=== PATIENT | female | born 1970 ===

== ENCOUNTER 2019-05-10 03:09 | Emergency (ER) | payer BC ==
--- OUTSIDE RECORDS SUMMARY | 2019-05-10 03:11 | XMS REPORT | Summary of Care ---
:1970 Author Organization [facility] Address [address] [place] [id number] Care Team Providers Name Role Phone Dori Foy MD Primary Care Provider Reason for Visit Reason Comments Rx Concern/Question Encounter Details Date Type Department Care Team Description 10/17/2018 Telephone [facility] Pediatric Dori Foy Rx Concern/ Question and Adult Primary Care- MD Judy Mcgarry [address] [place] [address] [place] [address] [address] [place], [place] [id number] [place] [phone] Allergies No Known Allergiesdocumented as of this encounter (statuses as of 10/18/2018) Medications No known medicationsdocumented as of this encounter (statuses as of 10/18/2018) Active Problems Problem Noted Date Obesity (BMI 30-39.9) 10/03/2018 documented as of this encounter (statuses as of 10/18/2018) Social History Tobacco Use Types Packs/Day Years Used Date Never Smoker Smokeless Tobacco: Never Used Alcohol Use Drinks/Week oz/Week Comments No 0 Standard drinks or equivalent 0.0 Sex Assigned at Date Recorded Not on file Job Start Date Occupation Industry Not on file Not on file Not on file Travel History Travel Start Travel End No recent travel history available. documented as of this encounter Last Filed Vital Signs Not on filedocumented in this encounter Plan of Treatment Date Type Specialty Care Team Description 10/03/2019 Office Visit Internal Medicine Dori Foy MD [address] [place] [address] [facility] [address] [id number] [phone] 10/07/2019 Office Visit Obstetrics & Gynecology Neena Diego PA-C [address] [place] [address] [phone] Health Maintenance Due Date Last Done Comments INFLUENZA VACCINE 11/25/2018 DTaP,Tdap,and Td Vaccines (1 10/02/2019 Postponed from 01/24/1991 - Tdap) (Insurance / Financial) MAMMOGRAM 10/09/2019 10/08/2018 PAP SMEAR 07/05/2020 07/06/2015, 02/08/2011 PNEUMOCOCCAL 0-64 YEARS Aged Out No longer eligible based COMBINED SERIES on patient's age to complete this topic documented as of this encounter Results Not on filedocumented in this encounter Insurance Payer Benefit Plan Subscriber ID Effective Dates Phone Address Type / Group [employer] OF [facility] [place] [id number] 2017-Jevon [phone] [address] PPO/[place] - OUT OF t 7 [id number] [place] [address] documented as of this encounter
--- OUTSIDE RECORDS SUMMARY | 2019-05-10 03:11 | XMS REPORT | Summary of Care ---
:1970 Author Organization [facility] Address [address] [place] [address] Care Team Providers Name Role Phone Dori Foy MD Primary Care Provider Reason for Referral (Routine) Status Reason Specialty Diagnoses / Referred By Referred To Procedures Contact Contact New Request Obstetrics & Diagnoses Abnormal cervical Papanicolaou smear, unspecified abnormal pap finding Johnathon Foy, Gynecology Procedures CONSULT/REFERRAL FRONT DESK PERSON MD Neena Moreira PA-C [address] [place] [address]. [facility] [address] [place] [phone] Phone: Fax: Reason for Visit Reason Comments New Patient Hypertension Auth/Cert Status Reason Specialty Diagnoses / Referred By Referred To Procedures Contact Contact Clinical Medical Diagnoses Routine adult health maintenance Adc Lab Laboratory Procedures CBC ZINC VIT B 6 PLASMA VIT B1 HGBA1C FT3 FT4 TSG LIPID CMP CBC [address] [place] [address] Encounter Details Date Type Department Care Team Description 10/01/2018 Office Visit [facility] Danii Essential hypertension ( Primary Dx); Pediatric and Adult Dori Mcgarry MD Abnormal cervical Papanicolaou smear, unspecified abnormal pap finding; Primary Care- [address] [place] [address] Dr [place] adult health maintenance; [facility] 103 Other insomnia; [address] [place] [address] Dietary counseling; [address] [place] [address] Allergies No Known Allergiesdocumented as of this encounter (statuses as of 11/06/2018) Medications Medication Sig Dispensed Refills Start Date End Date Status lisinopril Take 1 Tab by 30 Tab 0 07/06/2015 10/01/2018 Discontinued (PRINIVIL,ZESTRIL) mouth daily. 10 mg tablet documented as of this encounter (statuses as of 11/06/2018) Active Problems Problem Noted Date Obesity (BMI 30-39.9) 10/03/2018 documented as of this encounter (statuses as of 11/06/2018) Social History Tobacco Use Types Packs/Day Years [...] of this encounter Last Filed Vital Signs Vital Sign Reading Time Taken Comments Blood Pressure 127/87 10/01/2018 9:06 AM CDT Pulse 76 10/01/2018 9:06 AM CDT Temperature 36.6 C (97.8 F) 10/01/2018 9:06 AM CDT Respiratory Rate 18 10/01/2018 9:06 AM CDT Oxygen Saturation 98% 10/01/2018 9:06 AM CDT Inhaled Oxygen Concentration - - Weight 99.4 kg (219 lb 3.2 oz) 10/01/2018 9:06 AM CDT Height 168 cm (5' 6.14") 10/01/2018 9:06 AM CDT Body Mass Index 35.23 10/01/2018 9:06 AM CDT documented in this encounter Patient Instructions Patient InstructionsRebecca Andres - 10/01/2018 9:00 AM CDT Ask pharmacy about tdap vaccine. If blood pressure is running more than 130/90 on a regular basis please call the office. Nonmeat protein options include: Soy proteins such as tofu, tempeh, textured vegetable protein, meatless crumbles Wheat protein such as seitan Nut butters (high in fats so no more than 2 tablespoons a day) or unsalted nuts Nondairy milks, such as soymilk, almond milk, coconut milk Nondairy yogurts, such as soy or almond based yogurts Cooked dried beans, peas, and lentils Vegetables such as broccoli, spinach, kale, sprouts, asparagus, and artichokes Grains such as quinoa (pronounced keen-guzman), ancient grains (barley, farro, amaranth, etc.) Add in more vegetables and fruits. Limit starchy vegetables to 1 serving a day total. Take in no more than 4 servings a fruit a day and at least 5 servings of vegetables a day. Beans belong under protein NOT starch. by the Seed of my plants when: Every Other Monday for 6 weeks Where: [facility] Time: 3:00 p.m. to 4:00 p.m. Plant-Based Cooking for Your good health Did you know that a plant-based diet can help you reduce body weight, reduce the risk for chronic disease plus help you feel better? Join Charo Diaz, Registered Dietitian & Joie Cardoza, Director of Food and for a six weekseries of classes designed to teach you and your family how to shop smarter, cook rubber goods supervisor, and eat wiser for a healthier lifestyle. Nutrition is our [place] ? Monthly Cooking Demonstrations Food Tastings Delicious Recipes ? spring Class Schedule July 11, 2018 July 25, 2018 August 08, 2018 August 22, 2018 September 05, 2018 September 19, 2018 ? [address] [address] For more information call [phone] [facility] documented in this encounter Progress Notes Dori Foy MD - 10/01/2018 9:00 AM CDT Initial Assessment Date of Service: 10/01/2018 CC: establish care for chronic medical conditions HPI: Destiney Pacheco is a 48 year old female with PMH including has a past medical history of Hypertension. who is being seen to establish care. Pt has HTN. Denies checking BP at home. Needs PCP, is pretty healthy. Pt states she has trouble with sleep. Health Maintenance Due for tetanus vaccine. Due for pap smear. Past Medical History: Diagnosis Date Hypertension diet controlled Past Surgical History: Procedure Laterality Date CHOLECYSTECTOMY Family History Problem Relation Age of Onset No Significant Medical Problems Mother No Significant Medical Problems Father Arthritis NoFHx Asthma NoFHx defects NoFHx Breast Cancer NoFHx Colon Cancer NoFHx Ovarian Cancer NoFHx Uterine Cancer NoFHx Depression NoFHx Cancer NoFHx Diabetes NoFHx Genetic NoFHx Heart NoFHx High cholesterol NoFHx Hypertension NoFHx Mental retardation NoFHx Neurological NoFHx Osteoporosis NoFHx Psychiatry NoFHx Social History Socioeconomic History Marital status: Spouse name: Not on file Number of children: Not on file Years of education: Not on file Highest education level: Not on file Occupational History 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 Employer: [employer] Social Needs Financial resource strain: Not on file Food insecurity: Worry: Not on file Inability: Not on file Transportation needs: Medical: Not on file Non-medical: Not on file Tobacco Use Smoking status: Never Smoker Smokeless tobacco: Never Used Substance and Sexual Activity Alcohol use: No Alcohol/week: 0.0 oz Drug use: No Sexual activity: Not Currently Lifestyle Physical activity: Days per week: Not on file Minutes per session: Not on file Stress: Not on file Relationships Social connections: Talks on phone: Not on file Gets together: Not on file Attends protestant service: Not on file Active member of club or organization: Not on file Attends meetings of clubs or organizations: Not on file Relationship status: Not on file Intimate partner violence: Fear of current or ex partner: Not on file Emotionally abused: Not on file Physically abused: Not on file Forced sexual activity: Not on file Other Topics Concern Not on file Social History Narrative No domestic abuse or violence. Lives with 3 children. 10/01/2018 No Known Allergies No current outpatient medications on file. No current facility-administered medications for this visit. ROS: Review of Systems Psychiatric/Behavioral: Positive for sleep disturbance. PE: Blood pressure 127/87, pulse 76, temperature 36.6 C (97.8 F), temperature source Oral, resp. rate 18, height 5' 6.14" (1.68 m), weight 219 lb 3.2 oz ( 99.4 kg), last menstrual period 09/23/2018, SpO2 98 %. Physical Exam Constitutional: She is oriented to person, place, and time. She appears well- developed and well-nourished. No distress. HENT: Head: Normocephalic and atraumatic. Right Ear: External ear normal. Left Ear: External ear normal. Nose: Nose normal. No tracheal deviation Eyes: Lids are normal. Right eye exhibits no discharge. Left eye exhibits no discharge. No scleral icterus. Left and right eyelids normal. Cardiovascular: Normal rate, regular rhythm and normal heart sounds. Exam reveals no gallop and no friction rub. No murmur heard. Pulmonary/Chest: Effort normal and breath sounds normal. No respiratory distress. She has no wheezes. She has no rales. Abdominal: Normal appearance. GI system: Soft. No distension, bowel sounds are normal. There is no tenderness. Neurological: She is alert and oriented to person, place, and time. No tremors. Normal gait. Skin: Skin is warm and dry. No rash noted. She is not diaphoretic. Psychiatric: She has a normal mood and affect. Her speech is normal and behavior is normal. Pleasant. Vitals reviewed. Results: No new labs Assessment & PLAN: Destiney Pacheco is a 48 year old female with PMH including has a past medical history of Hypertension. who is being seen to establish care. Essential hypertension (primary encounter diagnosis) Comment: Denies checking BP at home. Plan: Pt will monitor BP. If BP is more than 130/90 on a regular basis pt will call. Abnormal cervical Papanicolaou smear, unspecified abnormal pap finding Comment: Due for pap smear. Plan: CONSULT/REFERRAL FRONT DESK PERSON Routine adult health maintenance Comment: Due for annual labs. Plan: CBC WITH DIFF, COMP. METABOLIC PANEL (99271), LIPID PANEL (86258)(TOTAL CHOLESTEROL, TRIGLYCERIDES, HDL), THYROID STIMULATING HORMONE, FREE T4, FREE T3, GLYCOSYLATED HEMOGLOBIN (A1C), CBC WITH DIFFERENTIAL Other insomnia Comment: Pt c/o sleep trouble. Will check vitamin levels. Plan: VITAMIN B1 (THIAMINE), WHOLE BLOOD, VITAMIN B6, PLASMA, ZINC, SERUM Dietary counseling Comment: Discussed healthy diet changes. Plan: Gave references and handouts. Exercise counseling Comment: Discussed increase in exercise. Plan: Pt will work on exercise. Plan of care, desired health behaviors, goals,& medication discussed with patient and educational resources and self management tools provided as appropriate. Patient/family/guardian voices understanding. Patient verbalized understanding & agrees to plan of care. Barriers to care: none Ability to manage care: good Return in about 1 year (around 10/02/2019) for Chronic medical conditions, annual exam. Scribe's Attestation Rebecca Mendieta , am scribing for, and in the presence of, Dori Foy MD who performed the services described here-in. Rebecca Andres, October 01, 2018, 9:53 AM Physician's Attestation Dori Mendieta MD, personally performed the services described in this documentation , asscribed by, Rebecca Andres in my presence and it is both accurate and complete. Dori Foy MD October 04, 2018, 8:04 PM documented in this encounter Plan of Treatment Date Type Specialty Care Team Description 10/03/2019 Office Visit Internal Medicine Dori Foy MD [address] [place] [address] [phone] 10/07/2019 Office Visit Obstetrics & Gynecology Neena Diego PA-C [address] [place] [phone] Health Maintenance Due Date Last Done Comments INFLUENZA VACCINE 11/25/2018 DTaP,Tdap,and Td Vaccines (1 10/02/2019 Postponed from 01/24/1991 - Tdap) (Insurance / Financial) MAMMOGRAM 10/09/2019 10/08/2018 PAP SMEAR 07/05/2020 07/06/2015, 02/08/2011 PNEUMOCOCCAL 0-64 YEARS Aged Out No longer eligible based COMBINED SERIES on patient's age to complete this topic documented as of this encounter Procedures Procedure Name Priority Date/Time Associated Diagnosis Comments VITAMIN B1 Routine 10/01/2018 11:01 Other insomnia Results for this (THIAMINE), WHOLE AM CDT procedure are in BLOOD the results section. CBC WITH DIFFERENTIAL Routine 10/01/2018 11:01 Routine adult health Results for this AM CDT maintenance procedure are in the results section. FREE T3 Routine 10/01/2018 11:01 Routine adult health Results for this AM CDT maintenance procedure are in the results section. GLYCOSYLATED Routine 10/01/2018 11:01 Routine adult health Results for this HEMOGLOBIN (A1C) AM CDT maintenance procedure are in the results section. CBC WITH DIFF Routine 10/01/2018 11:01 Routine adult health Results for this AM CDT maintenance procedure are in the results section. LIPID PANEL Routine 10/01/2018 11:01 Routine adult health Results for this (05407)(TOTAL AM CDT maintenance procedure are in CHOLESTEROL, the results TRIGLYCERIDES, HDL) section. COMP. METABOLIC PANEL Routine 10/01/2018 11:01 Routine adult health Results for this (79726) AM CDT maintenance procedure are in the results section. THYROID STIMULATING Routine 10/01/2018 11:01 Routine adult health Results for this HORMONE AM CDT maintenance procedure are in the results section. FREE T4 Routine 10/01/2018 11:01 Routine adult health Results for this AM CDT maintenance procedure are in the results section. VITAMIN B6, PLASMA Routine 10/01/2018 11:01 Other insomnia Results for this AM CDT procedure are in the results section. ZINC, SERUM Routine 10/01/2018 11:01 Other insomnia Results for this AM CDT procedure are in the results section. documented in this encounter Results CBC WITH DIFFERENTIAL (10/01/2018 11:01 AM CDT) WBC 4.87 4.30 - 11.10 [facility] 10*3/L [facility] RBC 4.32 3.93 - 5.25 [facility] 10*6/L [facility] HGB 9.1 (L) 11.6 - 15.0 [facility] g/dL [facility] HCT 32.1 (L) 35.7 - 45.2 % [facility] MCV 74.3 (L) 80.6 - 95.5 [facility] MCH 21.1 (L) 25.9 - 32.8 [facility] MCHC 28.3 (L) 31.6 - 35.1 [facility] g/dL HOSPITAL [facility] RDW-SD 43.8 39.0 - 49.9 [facility] fL [facility] RDW-CV 16.3 (H) 12.0 - 15.5 % [facility] PLT 169 166 - 358 [facility] 10*3/L [facility] MPV Comment: Not 9.5 - 12.9 fL [facility] Measured [facility] IPF % 14.2 (H)Comment: 1.3 - 7.7 % [facility] Platelet count HOSPITAL measured by LABORATORY fluorescence method. NRBC/100 WBC 0.0 0.0 - 10.0 [facility] /100 WBCs [facility] NRBC x10^3 <0.01 10*3/L [facility] GRAN MAT (NEUT) % 49.6 % [facility] IMM GRAN % 0.60 % [facility] LYMPH % 36.1 % [facility] MONO % 8.6 % [facility] EOS % 4.3 % [facility] BASO % 0.8 % [facility] GRAN MAT 2.41 1.88 - 7.09 [facility] x10^3(ANC) 10*3/uL [facility] IMM GRAN x10^3 0.03 0.00 - 0.06 [facility] 10*3/uL [facility] LYMPH x10^3 1.76 1.32 - 3.29 [facility] 10*3/uL [facility] MONO x10^3 0.42 0.33 - 0.92 [facility] 10*3/uL [facility] EOS x10^3 0.21 0.03 - 0.39 [facility] 10*3/uL [facility] BASO x10^3 0.04 0.01 - 0.07 [facility] 10*3/uL [facility] Specimen Blood Performing Organization Address City/State/Zipcode Phone Number [facility] CLIA: [id number], [address] [place] [address] ZINC, SERUM (10/01/2018 11:01 AM CDT) ZINC 75.6 60.0 - 120.0 [facility] Comment: ug/dL INTERPRETIVE INFORMATION: Zinc, Serum or Plasma Elevated results may be due to skin or collection-related contamination, including the use of a noncertified metal-free collection/transport tube. If contamination concerns exist due to elevated levels of serum/plasma zinc, confirmation with a second specimen collected in a certified metal-free tube is recommended. Circulating zinc concentrations are dependent on albumin status and are depressed with malnutrition.Zinc may also be lowered with infection, inflammation, stress, oral contraceptives, and .Zinc may be elevated with zinc supplementation or fasting.Elevated zinc concentrations may interfere with copper absorption. Test developed and characteristics determined by [employer]. See Compliance Statement B: [employer]/CS Performed by [employer], [address] [place] [address] [phone] [email or web address], Eduardo Jorge MD, Lab. Director Specimen Blood Performing Organization Address [facility] Phone Number [facility] [address] [place] [address] VITAMIN B6, PLASMA (10/01/2018 11:01 AM CDT) Pathologist [facility] VIT B6 61.0 20.0 - 125.0 [facility] Comment: nmol/L INTERPRETIVE INFORMATION: Vitamin B6 (Pyridoxal 5-Phosphate) Pyridoxal 5'-phosphate measured in a specimen collected following an 8-hour or overnight fast accurately indicates vitamin B6 nutritional status. Non-fasting specimen concentration reflects recent vitamin intake. Test developed and characteristics determined by [employer]. See Compliance Statement B: [employer]CS Performed by [employer], [address] [place] [address] [id number] [email or web address], Eduardo Jorge MD, Lab. Director Specimen Blood Performing Organization Address [facility] Phone Number [facility] [address] [place] [address] VITAMIN B1 (THIAMINE), WHOLE BLOOD (10/01/2018 11:01 AM CDT) Pathologist [facility] Vitamin B1, Whole 110 70 - 180 [facility] Blood Comment: nmol/L INTERPRETIVE INFORMATION: Vitamin B1, Whole Blood This assay measures the concentration of thiamine diphosphate (TDP), the primary active form of vitamin B1. Approximately 90 percent of vitamin B1 present in whole blood is TDP. Thiamine and thiamine monophosphate, which comprise the remaining 10 percent, are not measured. Test developed and characteristics determined by [employer]. See Compliance Statement B: [employer]/CS Performed by [employer], [address] [facility] [place] [address] www.[email or web address], Eduardo Jorge MD, Lab. Director Specimen Blood Performing Organization Address [facility] Phone Number [facility] [address] [place] [address] GLYCOSYLATED HEMOGLOBIN (A1C) (10/01/2018 11:01 AM CDT) HGB A1C 5.6 4.0 - 6.0 % NGSP [facility] Specimen Blood Narrative Performed At %A1C (NGSP) Interpretation (ADA) [facility] 4.8-5.6 Normal or (Non-Diabetic Range) 5.7-6.4 Increased Risk (Pre-Diabetic) >6.5Diabetes Indicated Performing Organization Address [facility] Phone Number [facility] CLIA: [id number], [address] [place] [address] FREE T3 (10/01/2018 11:01 AM CDT) FREE T3 3.43 2.77 - 5.27 pg/mL [facility] Specimen Blood Performing Organization Address [facility] Phone Number [facility] CLIA: [id number], [address] [place], [place] [address] [address] FREE T4 (10/01/2018 11:01 AM CDT) FREE T4 0.84 0.78 - 2.20 ng/dL [facility] Specimen Blood Performing Organization Address [facility] Phone Number [facility] CLIA: [id number], [address] [place], [place] [address] [address] THYROID STIMULATING HORMONE (10/01/2018 11:01 AM CDT) TSH 1.34 0.45 - 4.70 mIU/L [facility] Specimen Blood Performing Organization Address [facility] Phone Number [facility] CLIA: [id number], [address] [place] [address] LIPID PANEL (41833)(TOTAL CHOLESTEROL, TRIGLYCERIDES, HDL) (10/01/2018 11:01 AM CDT) CHOL 184 120 - 200 mg/dL [facility] HDL 53 >50 mg/dL [facility] HDLC RATIO 3.5 <=4.5 [facility] TRIG 197 (H) 30 - 170 mg/dL [facility] LDL CHOL 92 <=160 mg/dL [facility] VLDL 39 5 - 60 mg/dL [facility] Specimen Blood Performing Organization Address City/State/Zipcode Phone Number [facility] CLIA: [id number], [address] [place] [address] COMP. METABOLIC PANEL (34290) (10/01/2018 11:01 AM CDT) NA 143 135 - 145 [facility] mmol/L [facility] K 4.1 3.5 - 5.0 [facility] mmol/L [facility] CL 109 (H) 98 - 108 mmol/L [facility] CO2 TOTAL 24 23 - 31 mmol/L [facility] AGAP 10 2 - 16 [facility] BUN 11 7 - 23 mg/dL [facility] GLUCOSE 97 70 - 110 mg/dL [facility] CREATININE 0.51 0.50 - 1.04 [facility] mg/dL [facility] TOTAL BILI 0.2 0.1 - 1.1 mg/dL [facility] CALCIUM 9.0 8.6 - 10.6 [facility] mg/dL [facility] T PROTEIN 7.2 6.3 - 8.2 g/dL [facility] ALBUMIN 4.2 3.5 - 5.0 g/dL [facility] ALK PHOS 51 34 - 122 U/L [facility] ALT(SGPT) 19 9 - 51 U/L [facility] AST(SGOT) 18 13 - 40 U/L [facility] eGFR Calculation 129.8 mL/min/1.73m2 [facility] ([facility] [place]) eGFR Calculation 157.4 mL/min/1.73m2 [facility] () [facility] Specimen Blood Narrative Performed At Association of Glomerular Filtration Rate (GFR) [facility] and Staging of Kidney Disease* + + +- + | GFR (mL/min/1.73 m2)| With Kidney Damage|Without Kidney Damage + + +- + |>90| Stage one| Normal + + +- + |60-89|S tage two| Decreased GFR + + +- + |30-59|S tage three| Stage three + + +- + |15-29|S tage four | Stage four + + +- + |<15 (or dialysis)|Stage five | Stage five + + +- + *Each stage assumes the associated GFR level has been in effect for at least three months.Stages 1 to 5, with or without kidney disease, indicate chronic kidney disease. Notes: Determination of stages one and two (with eGFR >59mL/min/1.73 m2) requires estimation of kidney damage for at least three months as defined by structural or functional abnormalities of the kidney, manifested by either: Pathological abnormalities or Markers of kidney damage (including abnormalities in the composition of the blood or urine or abnormalities in imaging tests). Performing Organization Address City/State/Zipcode Phone Number [facility] CLIA: [id number], [address] [place] [address] documented in this encounter Visit Diagnoses Diagnosis Essential hypertension - Primary Unspecified essential hypertension Abnormal cervical Papanicolaou smear, unspecified abnormal pap finding Routine adult health maintenance Routine general medical examination at a health care facility Other insomnia Dietary counseling Dietary surveillance and counseling Exercise counseling documented in this encounter Insurance Payer Benefit Plan Subscriber ID Effective Dates Phone Address Type / Group [facility] [id number] 2017-Jevon [phone] [address] PPO/POS [place] - OUT OF t 7 [id number] [place] [address] documented as of this encounter
--- OUTSIDE RECORDS SUMMARY | 2019-05-10 03:12 | XMS REPORT | Summary of Care ---
:1970 Author Organization [facility] - [facility] Address [address] [place] [id number] Care Team Providers Name Role Phone Dori Foy MD Primary Care Provider Reason for Visit Reason Comments Error Encounter Details Date Type Department Care Team Description 04/08/2019 Office Visit [facility] Women's Neena Diego, [facility] PA-C ENCOUNTER--DISREGARD [address] [place] [address], [facility] [address] [place] [id number] [place], [place] [phone] Allergies No Known Allergiesdocumented as of this encounter (statuses as of 04/09/2019) Medications Medication Sig Dispensed Refills Start Date End Date Status fluticasone propionate Use 1 [place] in 16 g 0 02/20/2019 Active 50 mcg/actuation nasal each nostril sprayIndications: Acute daily. non-recurrent maxillary sinusitis zinc sulfate (ZINC-15 Take by mouth 0 Active ORAL) daily. norgestimate-ethinyl Take 1 tablet by 1 Package 2 02/26/2019 Active estradiol 0.25-35 mouth daily. mg-mcg per tabletIndications: Menorrhagia with regular cycle, Encounter for initial prescription of contraceptive pills SERTraline 25 mg Take 1 tablet by 30 tablet 2 03/29/2019 Active tabletIndications: mouth daily. Anxiety and depression lisinopril 10 mg Take 1 tablet by 90 tablet 3 03/29/2019 Active tabletIndications: mouth daily. Essential hypertension documented as of this encounter (statuses as of 04/09/2019) Active Problems Problem Noted Date Essential hypertension 03/29/2019 Nose congestion 03/29/2019 Stress and adjustment reaction 03/29/2019 Anxiety and depression 03/29/2019 Left otitis media, unspecified otitis media type 02/23/2019 Acute non-recurrent maxillary sinusitis 02/23/2019 Productive cough 02/23/2019 Pharyngitis, unspecified etiology 02/23/2019 Sore throat 02/23/2019 Nonintractable headache, unspecified chronicity pattern, unspecified 2018 headache type Obesity (BMI 30-39.9) 10/03/2018 documented as of this encounter (statuses as of 04/09/2019) Immunizations Name Administration Dates Next Due Influenza Virus Vaccine Quad .5 mL IM 6+ MO 12/31/2018 documented as of this encounter Social History Tobacco Use Types Packs/Day Years [...] Signs Not on filedocumented in this encounter Progress Notes Neena Diego PA-C - 04/08/2019 4:15 PM CSTPatient left before being seen documented in this encounter Plan of Treatment Date Type Specialty Care Team Description 04/09/2019 Office Visit Family Medicine Myron Haddad MD [address] [place] [address] [address] [place] [address] [phone] 04/16/2019 Office Visit Obstetrics & Gynecology Neena Diego PA-C [address] [place] [address] Drive [facility] [address] [place] [phone] 08/05/2019 Office Visit Internal Medicine Dori Foy MD [address] [place] [address] Dr [address] [place] [address] 10/03/2019 Office Visit Internal Medicine Dori Foy MD [address] [place] [address] [address] [place] [address] [phone] 10/07/2019 Office Visit Obstetrics & Gynecology Neena Diego PA-C [address] [facility] [address] [place] [address] Health Maintenance Due Date Last Done Comments DTaP,Tdap,and Td Vaccines (1 10/02/2019 Postponed from 01/24/1983 - Tdap) (Insurance / Financial) Breast Cancer Screening 10/09/2019 10/08/2018 (MAMMOGRAM) PAP SMEAR 07/05/2020 07/06/2015, 02/08/2011 INFLUENZA VACCINE Completed 12/31/2018 PNEUMOCOCCAL 0-64 YEARS Aged Out No longer eligible based COMBINED SERIES on patient's age to complete this topic documented as of this encounter Results Not on filedocumented in this encounter Visit Diagnoses Diagnosis ERRONEOUS ENCOUNTER--DISREGARD - Primary documented in this encounter Insurance Payer Benefit Plan Subscriber ID Effective Dates Phone Address Type / Group [facility] [id number] 2017-Jevon [phone] [address] PPO/POS [place] - OUT OF t 7 [id number] [place] [address] documented as of this encounter
--- OUTSIDE RECORDS SUMMARY | 2019-05-10 03:12 | XMS REPORT | Summary of Care ---
:1970 Author Organization [facility] - [facility] Address [address] [place] [id number] Care Team Providers Name Role Phone Dori Foy MD Primary Care Provider Reason for Visit Reason Comments Error Encounter Details Date Type Department Care Team Description 04/08/2019 Office Visit [facility] Women's Neena Diego, [facility] PA-C ENCOUNTER--DISREGARD [address] [place] [address], [facility] [address] [place] [phone] [place], [place] [phone] Allergies No Known Allergiesdocumented as of this encounter (statuses as of 04/09/2019) Medications Medication Sig Dispensed Refills Start Date End Date Status fluticasone propionate Use 1 [place] in 16 g 0 02/20/2019 Active 50 [...] Office Visit Family Medicine Myron Haddad MD [address] [place] [address] [address] [place] [address] [phone] 04/16/2019 Office Visit Obstetrics & Gynecology Neena Diego PA-C [address] [place] [address] Drive [facility] [address] [place] [phone] 08/05/2019 Office Visit Internal Medicine Dori Foy MD [address] [place] [address] Dr [address] [place] [address] 10/03/2019 Office Visit Internal Medicine Dori Foy MD [address] [place] [address] [address] [place] [address] [phone] 10/07/2019 Office Visit Obstetrics & Gynecology Neena Diego PA-C [address] [facility] [address] [place] [address] Health Maintenance Due Date Last Done Comments [...] Effective Dates Phone Address Type / Group [facility] [id number] 2017-Jevon [phone] [address] PPO/POS [place] - OUT OF t 7 [id number] [place] [address] documented as of this encounter
--- OUTSIDE RECORDS SUMMARY | 2019-05-10 03:12 | XMS REPORT | Summary of Care ---
:1970 Author Organization [facility] Address [address] [place] [id number] Care Team Providers Name Role Phone Dori Foy MD Primary Care Provider Reason for Visit Reason Comments Follow-up Hypertension Depression Anxiety Anemia OBESITY Encounter Details Date Type Department Care Team Description 04/09/2019 Office Visit [facility] Pediatric Myron Haddad, Anxiety and depression (Primary Dx); and Adult Primary MD Essential hypertension; Care- [address] Anemia, unspecified type; [address] [place] [address] Dr[address] Obesity (BMI 30.0-34.9) [address] [place] [address] [place] [phone] [id number] [phone] Allergies No Known Allergiesdocumented as of this encounter (statuses as of 04/09/2019) Medications Medication Sig Dispensed Refills Start Date End Date Status fluticasone propionate Use 1 [place] in 16 g 0 02/20/2019 Active 50 [...] of 04/09/2019) Active Problems Problem Noted Date Anemia, unspecified type 04/09/2019 Obesity (BMI 30.0-34.9) 04/09/2019 Essential hypertension 03/29/2019 Nose congestion 03/29/2019 Stress [...] Sign Reading Time Taken Comments Blood Pressure 146/97 04/09/2019 9:08 AM YARN CLEANER Pulse 83 04/09/2019 9:07 AM YARN CLEANER Temperature 36.5 C (97.7 F) 04/09/2019 9:07 AM YARN CLEANER Respiratory Rate 18 04/09/2019 9:07 AM YARN CLEANER Oxygen Saturation 99% 04/09/2019 9:07 AM YARN CLEANER Inhaled Oxygen Concentration - - Weight 90.7 kg (199 lb 14.4 oz) 04/09/2019 9:07 AM YARN CLEANER Height 165.1 cm (5' 5") 04/09/2019 9:07 AM YARN CLEANER Body Mass Index 33.27 04/09/2019 9:07 AM YARN CLEANER documented in this encounter Patient Instructions Patient InstructionsEdMyron tucker MD - 04/09/2019 9:20 AM CST Eating Heart-Healthy Food: Using the DASH Plan Eating for your heart doesnt have to be hard or boring. You just need to know how to make healthier choices. The DASH eating plan has been developed to help you do just that. DASH stands for DietaryApproaches to Stop Hypertension. It is a plan that has been proven to be healthier for your heart and to lower your risk for high blood pressure. It can also help lower your risk for cancer, heart disease, osteoporosis, and diabetes. Choosing from each food group Choose foods from each of the food groups below each day. Try to get the recommended number of servings for each food group. The serving numbers are based on a diet of 2,000 calories a day.Talk to your doctor if youre unsure about your calorie needs. Along with getting the correct servings, the DASH plan also recommends a sodium intake less than 2,300 mg per day. Grains Servings: 6 to 8 a day A serving is: 1 slice bread 1 ounce dry cereal Half a cup cooked rice, pasta or cereal Best choices: Whole grains and any grains high in fiber. Vegetables Servings: 4 to 5 a day A serving is: 1 cup raw leafy vegetable Half a cup cut-up raw or cooked vegetable Half a cup vegetable juice Best choices: Fresh or frozen vegetables prepared without added salt or fat. Fruits Servings: 4 to 5 a day A serving is: 1 medium fruit One-quarter cup dried fruit Half a cup fresh, frozen, or canned fruit Half a cup of 100% fruit juices Best choices: A variety of fresh fruits of different colors. Whole fruits are a better choice than fruit juices. Low-fat or fat-free dairy Servings: 2 to 3 a day A serving is: 1 cup milk 1 cup yogurt One and a half ounces cheese Best choices: Skim or 1% milk, low-fat or fat-free yogurt or buttermilk, and low -fat cheeses. Lean meats, poultry, fish Servings:6 or fewer a day A serving is: 1ounce cooked meats, poultry, or fish 1 egg Best choices: Leanpoultry and fish. Trim away visible fat. Broil, grill, roast , or boil instead offrying. Remove skin from poultry before eating. Limit how much red meat you eat. Nuts, seeds, beans Servings: 4 to 5 a week A serving is: One-third cup nuts (one and a half ounces) 2 tablespoons nut butter or seeds Half a cup cooked dry beans or legumes Best choices: Dry roasted nuts with no salt added, lentils, kidney beans, garbanzo beans, and whole gaffney beans. Fats and oils Servings: 2 to 3 a day A serving is: 1 teaspoon vegetable oil 1 teaspoon soft margarine 1 tablespoonmayonnaise 2 tablespoons salad dressing Best choices: Nut and vegetable oils(nontropical vegetable oils), such as olive and canola oil. Sweets Servings: 5 a week or fewer A serving is: 1 tablespoon sugar, maple syrup, or honey 1 tablespoon jam or jelly 1 half-ounce jelly beans (about 15) 1 cup lemonade Best choices: Dried fruit can be a satisfying sweet. Choose low-fat sweets. And watch your serving sizes! For more on the DASH eating plan, visit: www.nhlbi.nih.gov/health/health-topics/topics/dash Ilya last reviewed this educational content on 08/26/201519990381-5625 [employer]. [address] [place] [address]. All rights reserved. This information is not intended as a substitute for professional medical care. Always follow your healthcare professional's instructions. AnxietyReaction Anxiety is the feeling we all get when we think something bad might happen. It is a normal response to stress and usually causes only a mild reaction. When anxiety becomes more severe, it caninterfere with daily life. In some cases, you may not even be aware of what it is youre anxious about. There may also be a genetic link or it may be a learned behavior in the home. Both psychological and physical triggers cause stress reaction. It's often a response to fear or emotional stress, real or imagined. This stress may come from home, family, work, or social relationships. During an anxiety reaction, you may feel: Helpless Nervous Depressed Irritable Your body may show signs of anxiety in many ways. You may experience: Dry mouth Shakiness Dizziness Weakness Trouble breathing Breathing fast (hyperventilating) Chest pressure Sweating Headache Nausea Diarrhea Tiredness Inability to sleep Sexual problems Home care Try to locate the sources of stress in your life. They may not be obvious. These may include: ? Daily hassles of life (such as traffic jams, missed appointments, or car troubles) ? Major life changes, both good (new baby or job promotion) and bad (loss of job or loss of loved one) ? Overload: feeling that you have too many responsibilities and can't take care of all of them at once ? Feeling helpless or feeling that your problems are beyond what youre able to solve Notice how your body reacts to stress. Learn to listen to your body signals. This will help you take action before the stress becomes severe. When you can, do something about the source of your stress. (Avoid hassles, limit the amount of change that happens in your life at one time and take a break when you feel overloaded). Unfortunately, many stressful situations can't be avoided. It is necessary to learn how to bettermanage stress. There are many proven methods that will reduce your anxiety. These include simple things like exercise, good nutrition, and adequate rest. Also, there are certain techniques that are helpful: ? Relaxation ? Breathing exercises ? Visualization ? Biofeedback ? Meditation For more information about this, consult your healthcare provider or go to a local bookstore and review the many books and tapes available on this subject. Follow-up care If you feel that your anxiety is not responding to self-help measures, contact your healthcare provider or make an appointment with a counselor. You may need short-term psychological counseling and temporary medicine to help you manage stress. Call 911 Call 911 if any of these happen: Trouble breathing Confusion Drowsiness or trouble wakening Fainting or loss of consciousness Rapid heart rate Seizure New chest pain that becomes more severe, lasts longer, or spreads into your shoulder, arm, neck, jaw, or back When to seek medical advice Call your healthcare provider right away if any of these happen: Your symptoms get worse Severe headache not relieved by rest and mild pain reliever [employer] last reviewed this educational content on 12/25/201619995566-1665 [employer]. [address] [facility], [place] [address]. All rights reserved. This information is not intended as a substitute for professional medical care. Always follow your healthcare professional's instructions. What Can Cause Depression? Depression is a real, treatable illness. Certain factors can trigger it. Below are some common knowncauses. Any of these factors, or a combination of them, can make depression more likely. Sometimes depression occurs for no one clear reason. But no matter what the cause, depression can be treated. Loss or stress Depression can occur in children and adults, but it often starts in adulthood. Normal grief over a , breakup, or other loss may become depression. Life stresses such as physical abuse, job loss, or sudden change in finances can also trigger depression. In some cases, years go by before the depression sets in. Family history The tendency to develop depression seems to run in families. If one or more of your close relatives (parents, grandparents, or siblings) have had an episode of depression, you may be more likely to develop the illness, too. Drugs or alcohol Drugs and alcohol can upset the chemical balance in the brain. This can lead to an episode of depression. Some depressed people turn to drugs or alcohol to numb the pain. But in the long run, doing so just makes depression worse. Medicines Depression can be a side effect of some medicines for high blood pressure, cancer, pain, and other health problems. So tell your doctor about how you are feeling and discuss the role your medicines mayplay in your symptoms. But never stop taking one without your doctors OK. Physical illness Being sick can make anyone feel frustrated and sad. But some health problems may cause actual changes in your brain that lead to depression. Other health problems such as an underactive thyroid may be mistaken for depression. Hormones Hormones carry messages in the bloodstream. They may affect brain chemicals, leading to depression. Women may get depressed when their hormone levels change quickly, such as just before their period, after giving , or during menopause. [employer] last reviewed this educational content on 11/25/201819996711-1935 [employer]. [address] [place] [address]. All rights reserved. This information is not intended as a substitute for professional medical care. Always follow your healthcare professional's instructions. CLEANER documented in this encounter Progress Notes Myron Haddad MD - 04/09/2019 9:20 AM CST Cc: Chief Complaint Patient presents with Follow-up Hypertension Depression Anxiety Anemia OBESITY HPI Destiney Pacheco is a 49 year old female with PMH of HTN, depression and anxiety presenting to the clinic for follow-up. Patient reports she is compliant with lisinopril 10 mg PO QD. Measures BP at home, and is usually about 127/90. Patient says that she just heard stressful news from sister, which is why her BP is high upon this office visit (149/91, 146/97 on recheck). Denies chest pain, dizziness, edema. She does notfollow a diet, but takes regular [employer] classes and likes to go on walks. On Monday03/30/19, patient went to ER and had an ultrasound because of abdominal pain. Result were normal, and she was told pain was secondary to menstruation. Currently denies abdominal pain. Today patient reports anxiety and mood is "better". She reports feeling depressed whenever she thinks about her parents who a few years ago. Sleep is improved. She has never taken medication for her mood or seen a psychiatrist, and has no interest in doing so. She was prescribed sertraline, but not current taking it. The only medication besides lisinopril she takes currently is zinc sulfate QD. Patient reports anxiety and stress is improved since last visit. 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 Her economic situation has improved and makes her less anxious now. Patient denies suicidal or homicidal ideations. She lives at home with her 3 teenage children. Her lives in [place], and they are not in good terms. Lab review completed in clinic today. Discussed low Hgb (9.9) from last CBC on with patient.She denies any fatigue, dizziness, lightheadedness, N/V. Discussed dietary modifications including fruits, vegetables, beef in moderation. Patient stopped taking iron supplement a few months ago after her iron panel on 01/14/19 showed elevated iron levels at 173. Allergies Destiney has No Known Allergies. Medications Outpatient Medications Prior to Visit Medication Sig Dispense Refill lisinopril 10 mg tablet Take 1 tablet by mouth daily. 90 tablet 3 zinc sulfate (ZINC-15 ORAL) Take by mouth daily. SERTraline 25 mg tablet Take 1 tablet by mouth daily. 30 tablet 2 norgestimate-ethinyl estradiol 0.25-35 mg-mcg per tablet Take 1 tablet by mouth daily. 1 Package2 fluticasone propionate 50 mcg/actuation nasal spray Use 1 [place] in each nostril daily. 16 g 0 No facility-administered medications prior to visit. Histories Past Medical History: Diagnosis Date Acute non-recurrent maxillary sinusitis 02/23/2019 Anemia, unspecified type 04/09/2019 Anxiety and depression 03/29/2019 Essential hypertension 03/29/2019 Hypertension Left otitis media, unspecified otitis media type 02/23/2019 Nose congestion 03/29/2019 Obesity (BMI 30-39.9) 10/03/2018 Productive cough 02/23/2019 Stress and adjustment reaction 03/29/2019 Past Surgical History: Procedure Laterality Date CHOLECYSTECTOMY Social History Socioeconomic History Marital status: Spouse name: Not on file Number of children: Not on file Years of education: Not on file Highest education level: Not on file Occupational History 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 Employer: [employer] Social Needs Financial resource strain: Not on file Food insecurity: Worry: Not on file Inability: Not on file Transportation needs: Medical: Not on file Non-medical: Not on file Tobacco Use Smoking status: Never Smoker Smokeless tobacco: Never Used Substance and Sexual Activity Alcohol use: No Alcohol/week: 0.0 standard drinks Drug use: No Sexual activity: Not Currently Lifestyle Physical activity: Days per week: Not on file Minutes per session: Not on file Stress: Not on file Relationships Social connections: Talks on phone: Not on file Gets together: Not on file Attends holiness service: Not on file Active member of [...] or violence. Lives with 3 children. 10/01/2018 Family History Problem Relation Age of Onset No Significant Medical Problems Mother No Significant Medical Problems Father Arthritis NoFHx Asthma NoFHx defects NoFHx Breast Cancer NoFHx Colon Cancer NoFHx Ovarian Cancer NoFHx Uterine Cancer NoFHx Depression NoFHx Cancer NoFHx Diabetes NoFHx Genetic NoFHx Heart NoFHx High cholesterol NoFHx Hypertension NoFHx Mental retardation NoFHx Neurological NoFHx Osteoporosis NoFHx Psychiatry NoFHx Review of Systems Constitutional: Negative for appetite change, chills, fatigue, fever, unexpected weight change, weight gain and weight loss. HENT: Negative for congestion and sore throat. Eyes: Negative for visual disturbance. Respiratory: Negative for cough, chest tightness and shortness of breath. Cardiovascular: Negative for chest pain, palpitations and leg swelling. Gastrointestinal: Positive for abdominal distention. Negative for abdominal pain , constipation, diarrhea, nausea and vomiting. Genitourinary: Negative for dysuria and pelvic pain. Musculoskeletal: Negative for arthralgias and myalgias. Skin: Negative for color change and rash. Neurological: Negative for dizziness, weakness, light-headedness and headaches. Psychiatric/Behavioral: Negative for behavioral problems, confusion, sleep disturbance and suicidal ideas. Hematological: Negative for cold intolerance and heat intolerance. Endocrine: Negative for cold intolerance, heat intolerance, weight gain and weight loss. Vital Signs BP (!) 146/97 (BP Location: Left arm, Patient Position: Sitting, BP CUFF SIZE: Adult Medium) | Pulse 83 | Temp 36.5 C (97.7 F) (Temporal Artery) | Resp 18 | Ht 5' 5" (1.651 m) | Wt 199 lb 14.4oz (90.7 kg) | SpO2 99% | BMI 33.27 kg/m Physical Exam Constitutional: She is oriented to person, place, and time. She appears well- developed and well-nourished. No distress. HENT: Head: Normocephalic. Right Ear: External ear normal. Left Ear: External ear normal. Nose: Nose normal. Mouth/Throat: Oropharynx is clear and moist. Eyes: Pupils are equal, round, and reactive to light. Conjunctivae and EOM are normal. Neck: Normal range of motion. Neck supple. Cardiovascular: Normal rate, regular rhythm, normal heart sounds and intact distal pulses. BP today was 149/91 on arrival, rechecked was 146/97. Patient attributes this to hearing stressful news before visit. Is asymptomatic Pulmonary/Chest: Effort normal and breath sounds normal. Abdominal: Soft. Bowel sounds are normal. Musculoskeletal: Normal range of motion. Neurological: She is alert and oriented to person, place, and time. Skin: Skin is warm and dry. Psychiatric: She has a normal mood and affect. Assessment/Plan Anxiety and depression - Patient says stress, anxiety and depression have improved. Patient's is out of the country, in [place] and not currently in good terms with patient - Treatment options of depression, anxiety and stress were discussed. Patient does not want to take medications for her mood or see a psychiatrist. - Patient is not currently taking sertraline - Thyroid labs ordered at last office visit, advised patient to complete pending labs (TSH, free T4/T3) Essential hypertension - BP controlled at home, usually 127/90s. Today BP was 149/91, rechecked was 146 /97, which patient attributes to hearing stressful news immediately prior to office visit - Diet modification discussed. Advised to adopt DASH diet plan. Encouraged continued exercise. - continue lisinopril 10 mg tablet; Take 1 tablet by mouth daily. Obesity (BMI 30.0-34.9) - BMI 33.27 today - Encouraged diet change andcontinued exercise regimen Anemia, unspecified type - Prior iron level on 01/14/19 showed iron of 173, iron discontinued at that time. Will recheck ironlevel given recent Hgb of 9.9 and Hct 32.6. - IRON PANEL; Future Preventive Care: Medication reconciliation, patient education and anticipatory guidance completed. All questions and concerns addressed. AVS given on Anxiety , Depression and DASH plan Return in about 3 months (around 07/09/2019), or if symptoms worsen or fail to improve. Alanna Moncada 04/09/2019 9:53 AM I personally examined the patient on 04/09/2019 and agree with MS 3 (Alanna Moncada) note as written, including any changes or additions to the medical student 's note. I actively participated in the decision making process. Please see note for additional details. Myron Haddad MD 04/09/2019 10:30 AM documented in this encounter Plan of Treatment Date Type Specialty Care Team Description 04/16/2019 Office Visit Obstetrics & Gynecology Neena Diego PA-C [address] [place] [address] [address] [place] [phone] 08/05/2019 Office Visit Internal Medicine Dori Foy MD [address] [place] [address] [phone] 10/03/2019 Office Visit Internal Medicine Dori Foy MD [address] [place] [address] [address] [place] [address] [phone] 10/07/2019 Office Visit Obstetrics & Gynecology Neena Diego PA-C [address] [facility] [address] [place] [phone] Name Type Priority Associated Diagnoses Order Schedule IRON PANEL LAB Routine Anemia, unspecified type Expected: 04/09/2019, Expires: 04/09/2020 THYROID STIMULATING LAB Routine Anxiety and depression Expected: 04/09/2019 , HORMONE Expires: 04/09/2020 FREE T3 LAB Routine Anxiety and depression Expected: 04/09/2019, Expires: 04/09/2020 FREE T4 LAB Routine Anxiety and depression Expected: 04/09/2019, Expires: 04/09/2020 Health Maintenance Due Date Last Done Comments [...] filedocumented in this encounter Visit Diagnoses Diagnosis Anxiety and depression - Primary Dysthymic disorder Essential hypertension Unspecified essential hypertension Anemia, unspecified type Obesity (BMI 30.0-34.9) Obesity, unspecified documented in this encounter Insurance Payer Benefit Plan Subscriber ID Effective Dates Phone Address Type / Group [facility] [id number] 2017-Jevon [phone] [address] PPO/POS [place] - OUT OF t 7 [id number] [place] [address] documented as of this encounter
--- OUTSIDE RECORDS SUMMARY | 2019-05-10 03:12 | XMS REPORT | Summary of Care ---
:1970 Author Organization [facility] Address [address] [place] [id number] Care Team Providers Name Role Phone Dori Foy MD Primary Care Provider Reason for Visit Reason Comments Follow-up Hypertension Depression Anxiety Anemia OBESITY Encounter Details Date Type Department Care Team Description 04/09/2019 Office Visit [facility] Pediatric Myron Haddad, Anxiety and depression (Primary Dx); and Adult Primary MD Essential hypertension; Care- [address] Anemia, unspecified type; [address] [place] [address] Dr., Jeremie 205 Obesity (BMI 30.0-34.9) [address] [place] [address] [place] [phone] [address] [phone] Allergies No Known Allergiesdocumented as of this encounter (statuses as of 04/09/2019) Medications Medication Sig Dispensed Refills Start Date End Date Status fluticasone propionate Use 1 [place] in 16 g 0 02/20/2019 Active 50 [...] Comments Blood Pressure 146/97 04/09/2019 9:08 AM TILE LAYER HELPER Pulse 83 04/09/2019 9:07 AM TILE LAYER HELPER Temperature 36.5 C (97.7 F) 04/09/2019 9:07 AM TILE LAYER HELPER Respiratory Rate 18 04/09/2019 9:07 AM TILE LAYER HELPER Oxygen Saturation 99% 04/09/2019 9:07 AM TILE LAYER HELPER Inhaled Oxygen Concentration - - Weight 90.7 kg (199 lb 14.4 oz) 04/09/2019 9:07 AM TILE LAYER HELPER Height 165.1 cm (5' 5") 04/09/2019 9:07 AM TILE LAYER HELPER Body Mass Index 33.27 04/09/2019 9:07 AM TILE LAYER HELPER documented in this encounter Patient Instructions Patient [...] Ilya last reviewed this educational content on 08/26/201519995778-6831 [employer]. [address] [place] [address]. All rights reserved. This information is not [...] relieved by rest and mild pain reliever [employer] last reviewed this educational content on 12/25/201619990053-2487 [employer]. [address] [facility], [place] [address]. All rights reserved. This information is not [...] period, after giving , or during menopause. [employer] last reviewed this educational content on 11/25/201819998945-2329 [employer]. [address] [place] [address]. All rights reserved. This information is not intended as a substitute for professional medical care. Always follow your healthcare professional's instructions. LAYER HELPER documented in this encounter Progress Notes Myron [...] improved since last visit. 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 Her economic situation has improved and makes her less anxious now. Patient denies suicidal or homicidal ideations. She lives at home with her 3 teenage children. Her lives in [place], and they are not in good terms. [...] propionate 50 mcg/actuation nasal spray Use 1 [place] in each nostril daily. 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 Employer: [employer] Social Needs Financial resource strain: Not on [...] file Gets together: Not on file Attends buddhism service: Not on file Active member of [...] Visit Obstetrics & Gynecology Neena Diego PA-C [address] [place] [address] [address] [place] [phone] 08/05/2019 Office Visit Internal Medicine Dori Foy MD [address] [place] [address] [phone] 10/03/2019 Office Visit Internal Medicine Dori Foy MD [address] [place] [address] [address] [place] [address] [phone] 10/07/2019 Office Visit Obstetrics & Gynecology Neena Diego PA-C [address] [facility] [address] [place] [address] Name Type Priority Associated Diagnoses Order Schedule [...] [facility] [id number] 2017-Jevon [phone] [address] PPO/POS [place] - OUT OF t 7 [id number] [place] [address] documented as of this encounter
--- OUTSIDE RECORDS SUMMARY | 2019-05-10 03:13 | XMS REPORT ---
:1970 Author [facility] Address [address] [place] [address] Dr. Dawson [address] [place] [address] Care Team Providers Name Role Phone Unavailable Unavailable Unavailable Problems This patient has no known problems. Allergies, Adverse Reactions, Alerts This patient has no known allergies or adverse reactions. Medications This patient has no known medications.
--- OUTSIDE RECORDS SUMMARY | 2019-05-10 03:13 | XMS REPORT | Summary of Care ---
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 [address] [place] [address] [address], [address] [place] [address] Allergies No Known Allergiesdocumented as of this encounter (statuses as of 04/16/2019) Medications Medication Sig Dispensed Refills Start Date End Date Status fluticasone propionate Use 1 [place] in 16 g 0 02/20/2019 Active 50 [...] as of this encounter (statuses as of 04/16/2019) Active Problems Problem Noted Date Anemia, unspecified [...] as of this encounter (statuses as of 04/16/2019) Immunizations Name Administration Dates Next Due Influenza [...] Treatment Date Type Specialty Care Team Description 08/05/2019 Office Visit Internal Medicine Dori Foy MD [address] [place] [address] [phone] 10/03/2019 Office Visit Internal Medicine Dori Foy MD [address] [place] [address] [phone] 10/07/2019 Office Visit Obstetrics & Gynecology Neena Diego PA-C [address] [place] [phone] Health Maintenance Due Date Last Done Comments [...] encounter Visit Diagnoses Diagnosis Anxiety and depression Dysthymic disorder Anemia, unspecified type documented in this encounter Insurance Payer Benefit Plan Subscriber ID Effective Dates Phone Address Type / Group BCBS [facility] [id number] 2017-Jevon [phone] [address] PPO/POS [place] - OUT OF 7 [id number] [place] [address] documented as of this encounter
--- OUTSIDE RECORDS SUMMARY | 2019-05-10 03:13 | XMS REPORT | Summary of Care ---
:1970 Author Organization [facility] Address [address] [place] [address] Care Team Providers Name Role Phone Dori Foy MD Primary Care Provider Encounter Details Date Type Department Care Team Description 04/16/2019 Orders Only [facility] Doctor Unassigned, No [address] [facility] [place] [address] [address] [place] [address] Allergies No Known Allergiesdocumented as of this encounter (statuses as of 04/24/2019) Medications Medication Sig Dispensed Refills Start Date End Date Status fluticasone propionate Use 1 [place] in 16 g 0 02/20/2019 Active 50 [...] as of this encounter (statuses as of 04/24/2019) Active Problems Problem Noted Date Anemia, unspecified [...] as of this encounter (statuses as of 04/24/2019) Immunizations Name Administration Dates Next Due Influenza [...] Treatment Date Type Specialty Care Team Description 06/04/2019 Office Visit Internal Medicine Dori Foy MD [address] [place] [address] [phone] 08/05/2019 Office Visit Internal Medicine Dori Foy MD [address] [place] [address] 10/03/2019 Office Visit Internal Medicine Dori Foy MD [address] [place] [address] 10/07/2019 Office Visit Obstetrics & Gynecology Neena Diego PA-C [address] [place] [phone] Health Maintenance Due Date Last Done Comments [...] Procedure Name Priority Date/Time Associated Diagnosis Comments AGREEMENTS AUTHORIZATIONS Routine 04/16/2019 12: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 [id number] 2017-Jevon [phone] [address] PPO/POS [place] - OUT OF t 7 [id number] [place] [address] documented as of this encounter
[2019-05-10] MEDS ORDERED: MAGNE/ALUM HYDROXD 30 ML UCUP ONE (03:33)
[2019-05-10] MEDS ORDERED: ONDANSETRON 4 MG/2 ML VIAL ONE (03:34)
[2019-05-10] MEDS ORDERED: FAMOTIDINE 20 MG/2 ML VIAL IV ONE (03:34)
[2019-05-10] MEDS ORDERED: LIDOCAINE VISCOUS 2% SOLN 15 ML UDC ONE (03:34)
[2019-05-10 04:11] LABS: Absolute Lymphocytes (CBC) 1.9 K/uL (0.7-4.9); Basophils % 0.6 % (0-1.3); Hematocrit 33.9 % (36.0-45.0); Lymphocytes % 35.6 % (15.3-44.8); MPV 12.1 fL (7.6-11.3); RBC Red Blood Cell Count 4.15 M/uL (3.86-4.86)
[2019-05-10 04:45] LABS: ALT/SGPT 26 U/L (12-78); AST/SGOT 18 U/L (15-37); Albumin 3.3 g/dL (3.4-5.0); Alkaline Phosphatase 54 U/L (45-117); BUN Blood Urea Nitrogen 14 mg/dL (7-18); Bicarbonate 26 mmol/L (21-32); Bilirubin Direct < 0.1 mg/dL (0-0.2); Bilirubin Total 0.2 mg/dL (0.2-1.0); Glucose Level 88 mg/dL (74-106); Lipase 138 U/L (73-393); Potassium 3.7 mmol/L (3.5-5.1); Sodium Level 140 mmol/L (136-145)
--- NOTE | 2019-05-10 06:05 | ER ---
Nurse's Notes [facility] Name: Destiney Pacheco Age: 49 yrs Sex: Female : 1970 Arrival Date: 05/10/2019 Time: 03:12 Bed 8 Private MD: Diagnosis: Nausea with vomiting, unspecified;Gastritis, unspecified Presentation: 05/10 03:26 Presenting complaint: Patient states: she has had nausea and abdominal pain since bb approx 1999 last night. Transition of care: patient was not received from another setting of care. Onset of symptoms was May 09, 2019. Risk Assessment: Do you want to hurt yourself or someone else? Patient reports no desire to harm self or others. Initial Sepsis Screen: Does the patient meet any 2 criteria? No. Patient's initial sepsis screen is negative. Does the patient have a suspected source of infection? No. Patient's initial sepsis screen is negative. Care prior to arrival: None. 03:26 Method Of Arrival: Ambulatory bb 03:26 Acuity: WILL[place] 3 bb Triage Assessment: 04:25 GI: Reports lower abdominal pain, upper abdominal pain. 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 - Coronavirus screen:: The patient has NOT traveled to [place] in the past 14 days. Proceed with normal triage process as indicated. - Social history:: Smoking status: Patient denies any tobacco usage or history of. - Family history:: not pertinent. - Ebola Screening: : No symptoms or risks identified at this time. - Hospitalizations: : No recent hospitalization is reported. Screenin:45 Abuse screen: Denies threats or abuse. Denies injuries from another. Nutritional rr5 screening: No deficits noted. Tuberculosis screening: No symptoms or risk factors identified. Fall Risk IV access (20 points). Mental Status- Oriented to own ability (0 pts). Total Bahena Fall Scale indicates No Risk (0-24 pts). Assessment: 03:45 General: Appears in no apparent distress. comfortable, Behavior is calm, cooperative. rv 03:45 Pain: Complains of pain in abdomen. Neuro: Level of Consciousness is awake, alert, rv obeys commands, Oriented to person, place, time, situation. Cardiovascular: Patient's skin is warm and dry. Respiratory: Airway is patent. GI: Abdomen is non-distended. Derm: Skin is intact. 04:30 Reassessment: Patient appears in no apparent distress at this time. Patient is alert, rr5 oriented x 3, equal unlabored respirations, skin warm/dry/pink. awake, breathing spontaneously at room air. Patient states symptoms have improved. 05:30 Reassessment: Patient appears in no apparent distress at this time. Patient is alert, rr5 oriented x 3, equal unlabored respirations, skin warm/dry/pink. awaiting for result. no complaints made. 05:59 Reassessment: DR MENON TALKED TO THE PATIENT AND EXPLAINED THE RESULTS OF DIAGNOSTICS rv AND THE PLAN OF CARE. PATIENT AGREED. Patient denies pain at this time. Patient states feeling better. Patient states symptoms have improved. Vital Signs: 03:27 BP 124 / 81; Pulse 89; Resp 16 S; Temp 97.8(TE); Pulse Ox 97% on R/A; Weight 90.72 kg bb (R); Height 5 ft. 5 in. (165.10 cm) (R); Pain 8/10; 03:30 BP 110 / 69; Pulse 73; Resp 16; Pulse Ox 99% on R/A; rv 04:00 BP 107 / 87; Pulse 72; Resp 16; Pulse Ox 99% on R/A; rv 05:00 BP 117 / 82; Pulse 77; Resp 16; Pulse Ox 99% on R/A; rv 05:30 BP 112 / 64; Pulse 68; Resp 16; Pulse Ox 98% on R/A; rv 03:27 Body Mass Index 33.28 (90.72 kg, 165.10 cm) bb ED Course: 03:12 Patient arrived in ED. ag3 03:17 Joseph Menon MD is Attending Physician. rn 03:25 Inserted saline lock: 20 gauge in right antecubital area, using aseptic technique. rr5 ,using aseptic technique. inserted by doug Blood collected. 03:27 Triage completed. bb 03:27 Arm band placed on Patient placed in an exam room, on a stretcher, on pulse oximetry. bb 03:28 Jase Ignacio, RN is Primary Nurse. rr5 04:01 Radiology exam delayed due to lab results not completed at this time. (BUN/Creatinine). kw1 04:15 Radiology exam delayed due to lab results not completed at this time. test kw1 not completed at this time. 04:25 Patient has correct armband on for positive identification. Placed in gown. Bed in low rv position. Call light in reach. Pulse ox on. NIBP on. 04:30 Radiology exam delayed due to lab results not completed at this time. test kw1 not completed at this time. 06:00 No provider procedures requiring assistance completed. IV discontinued, intact, rv bleeding controlled, No redness/swelling at site. Pressure dressing applied. 06:03 Mitesh Myers MD is Referral Physician. rn Administered Medications: 03:33 Drug: GI Cocktail without - (Maalox Suspension 30 ml, Lidocaine Liquid 2 % 15 rr5 ml) Route: PO; 05:54 Follow up: Response: No adverse reaction rv 03:42 Drug: Zofran 4 mg Route: IVP; Site: right antecubital; rr5 05:54 Follow up: Response: No adverse reaction rv 03:44 Drug: Pepcid 20 mg Route: IVP; Site: right antecubital; rr5 05:54 Follow up: Response: No adverse reaction rv Outcome: 06:00 Discharged to home ambulatory. rv 06:00 Condition: good 06:04 Discharge ordered by . rn 06:09 Discharge instructions given to patient, Instructed on discharge instructions, follow rv up and referral plans. medication usage, Demonstrated understanding of instructions, follow-up care, medications, Prescriptions given X 2. 06:09 Patient left the ED. rv Signatures: Maria Eugenia Barnett RN RN bb Joseph Menon MD MD rn Wilhelm, Kimberly kw1 Binh Han RN RN rv Alexia Dormna ag3 Jase Ignacio, RN RN rr5
--- NOTE | 2019-05-10 06:05 | EDPHYS ---
Physician Documentation [facility] Name: Destiney Pacheco Age: 49 yrs Sex: Female : 1970 Arrival Date: 05/10/2019 Time: 03:12 Bed 8 Private MD: ED Physician Joseph Menon HPI: 05/10 04:35 This 49 yrs old Female presents to ER via Ambulatory with complaints of Nausea.rn 04:35 The patient presents to the emergency department with nausea, abdominal pain, of the rn epigastric area. Onset: The symptoms/episode began/occurred last night. Possible causes: unknown. The symptoms are aggravated by nothing. The symptoms are alleviated by nothing. Severity of symptoms: At their worst the symptoms were moderate in the emergency department the symptoms are unchanged. The patient has experienced similar episodes in the past. The patient has not recently seen a physician. Reports epigastric abd pain . 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 - Coronavirus screen:: The patient has NOT traveled to [place] in the past 14 days. Proceed with normal triage process as indicated. - Social history:: Smoking status: Patient denies any tobacco usage or history of. - Family history:: not pertinent. - Ebola Screening: : No symptoms or risks identified at this time. - Hospitalizations: : No recent hospitalization is reported. ROS: 04:41 Constitutional: Negative for fever, chills, and weight loss, Eyes: Negative for injury, rn pain, redness, and discharge, Cardiovascular: Negative for chest pain, palpitations, and edema, Respiratory: Negative for shortness of breath, cough, wheezing, and pleuritic chest pain, Abdomen/GI: Negative for vomiting, diarrhea, and constipation, MS/Extremity: Negative for injury and deformity, Skin: Negative for injury, rash, and discoloration, Neuro: Negative for headache, weakness, numbness, tingling, and seizure. Exam: 04:41 Constitutional: This is a well developed, well nourished patient who is awake, alert, single corner cutter to room without difficulty or assistance Head/Face: Normocephalic, atraumatic. ENT: MMM Cardiovascular: Regular rate and rhythm. No pulse deficits. Respiratory: No increased work of breathing, no retractions or nasal flaring. Abdomen/GI: soft, mild epigastric tenderness, no rebound MS/ Extremity: Pulses equal, no cyanosis. Neurovascular intact. Full, normal range of motion. Equal circumference. Neuro: Awake and alert, GCS 15, oriented to person, place, time, and situation. Cranial nerves II-XII grossly intact. Motor strength 5/5 in all extremities. Sensory grossly intact. Cerebellar exam normal. Normal gait. Vital Signs: 03:27 BP 124 / 81; Pulse 89; Resp 16 S; Temp 97.8(TE); Pulse Ox 97% on R/A; Weight 90.72 kg bb (R); Height 5 ft. 5 in. (165.10 cm) (R); Pain 8/10; 03:30 BP 110 / 69; Pulse 73; Resp 16; Pulse Ox 99% on R/A; rv 04:00 BP 107 / 87; Pulse 72; Resp 16; Pulse Ox 99% on R/A; rv 05:00 BP 117 / 82; Pulse 77; Resp 16; Pulse Ox 99% on R/A; rv 05:30 BP 112 / 64; Pulse 68; Resp 16; Pulse Ox 98% on R/A; rv 03:27 Body Mass Index 33.28 (90.72 kg, 165.10 cm) bb MDM: 03:17 Patient medically screened. rn 05:27 ED course: Pain resolved, nausea resolved, awaiting ct results. . rn 06:00 Differential diagnosis: Nonspecific abd pain, gastritis. Differential diagnosis: rn pancreatitis. Data reviewed: vital signs, nurses notes. Counseling: I had a detailed discussion with the patient and/or guardian regarding: the historical points, exam findings, and any diagnostic results supporting the discharge/admit diagnosis, lab results, radiology results, the need for outpatient follow up, to return to the emergency department if symptoms worsen or persist or if there are any questions or concerns that arise at home. Response to treatment: the patient's symptoms have markedly improved after treatment, the patient's condition has returned to base line, the patient is now symptom free. Special discussion: Based on the patient's Hx, exam, and Dx evaluation, there is no indication for emergent surgery or inpatient Tx. It is understood by the patient/guardian that if the Sx's persist or worsen they need to return immediately for re-evaluation. I discussed with the patient/guardian in detail that at this point there is no indication for admission to the hospital. It is understood, however, that if the symptoms persist or worsen the patient needs to return immediately for re-evaluation. Based on the history and exam findings, there is no indication for further emergent testing or inpatient evaluation. I discussed with the patient/guardian the need to see the state highway police officer for further evaluation of the symptoms. 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 05/10 03:27 Order name: Hepatic Function rn 05/10 03:27 Order name: Lipase rn 05/10 04:15 Order name: CBC with Automated Diff; Complete Time: 05:03 EDMS 05/10 03:27 Order name: CT Abd/Pelvis - IV Contrast Only rn 05/10 04:46 Order name: Basic Metabolic Panel; Complete Time: 05:03 EDMS 05/10 04:46 Order name: Liver (Hepatic) Function; Complete Time: 05:03 EDMS 05/10 04:46 Order name: Lipase; Complete Time: 05:03 EDMS 05/10 04:46 Order name: Creatinine (Radiology Only); Complete Time: 05:03 EDMS 05/10 03:27 Order name: IV Saline Lock; Complete Time: 03:45 rn 05/10 03:27 Order name: Labs collected and sent; Complete Time: 03:45 rn Administered Medications: 03:33 Drug: GI Cocktail without - (Maalox Suspension 30 ml, Lidocaine Liquid 2 % 15 rr5 ml) Route: PO; 05:54 Follow up: Response: No adverse reaction rv 03:42 Drug: Zofran 4 mg Route: IVP; Site: right antecubital; rr5 05:54 Follow up: Response: No adverse reaction rv 03:44 Drug: Pepcid 20 mg Route: IVP; Site: right antecubital; rr5 05:54 Follow up: Response: No adverse reaction rv Disposition: 05/10/19 06:04 Discharged to Home. Impression: Nausea with vomiting, unspecified, Gastritis, unspecified. - Condition is Stable. - Discharge Instructions: Gastritis, Adult, Nausea, Adult. - Prescriptions for Zofran ODT 4 mg Oral tablet,disintegrating - place 1 tablet by TRANSLINGUAL route every 8 hours As needed; 20 tablet. Protonix 40 mg Oral Tablet - take 1 tablet by ORAL route once daily; 30 tablet. - Medication Reconciliation Form, Thank You Letter, Antibiotic Education, Prescription Opioid Use form. - Follow up: Mitesh Myers MD; When: As needed; Reason: Recheck today's complaints, Re-evaluation by your physician. - Problem is new. - Symptoms have improved. Signatures: Dispatcher [employer] EDMS Maria Eugenia Barnett RN RN Joseph Richardson MD MD rn Vicente, Ronaldo, RN RN rv Roque, Raymond RN RN rr5 Corrections: (The following items were deleted from the chart) 06:09 06:04 05/10/2019 06:04 Discharged to Home. Impression: Nausea with vomiting, rv unspecified; Gastritis, unspecified. Condition is Stable. Forms are Medication Reconciliation Form, Thank You Letter, Antibiotic Education, Prescription Opioid Use. Follow up: Mitesh Myers; When: As needed; Reason: Recheck today's complaints, Re-evaluation by your physician. Problem is new. Symptoms have improved. rn
--- NOTE | 2019-05-10 08:20 | RAD REPORT ---
EXAM DESCRIPTION: CT - Abdomen Pelvis W Contrast - 05/10/2019 5:59 am CLINICAL HISTORY: The patient is 49 years old and is Female; epigastric abd pain TECHNIQUE: Axial computed tomography images of the abdomen and pelvis with intravenous contrast. S agittal and coronal reformatted images were created and reviewed. This CT exam was performed using one or more of the following dose reduction techniques: automated exposure control, adjustment of t he mA and/or kV according to patient size, and/or use of iterative reconstruction technique. COMPARISON: No relevant prior studies available. FINDINGS: LUNG BASES: Unremarkable. No mass. No consolidation. ABDOMEN: LIVER: A 0.8 cm low attenuating focus within the left hepatic lobe is present. Few smaller low -attenuation foci within the right hepatic lobe are also noted. GALLBLADDER AND BILE DUCTS: Surgical clips are present in the right upper quadrant, consistent w ith previous cholecystectomy. PANCREAS: No ductal dilation. No mass. SPLEEN: Unremarkable. ADRENALS: Unremarkable. No mass. KIDNEYS AND URETERS: Unremarkable. The kidneys enhance symmetrically. No obstructing renal or ur eteral calculus is seen. No hydronephrosis or hydroureter. No perinephric fluid or stranding. STOMACH AND BOWEL: The stomach is minimally fluid filled. The small bowel is normal in caliber. A moderate amount stool is present throughout colon. There is no mucosal thickening or evidence of nohemi wel obstruction. PELVIS: APPENDIX: The appendix is normal in caliber without surrounding inflammation. BLADDER: The bladder is nearly empty. REPRODUCTIVE: A 3 cm left ovarian cyst is present. The uterus and right ovary are normal. ABDOMEN and PELVIS: INTRAPERITONEAL SPACE: Unremarkable. No free air. No significant fluid collection. BONES/JOINTS: No acute fracture. SOFT TISSUES: The soft tissues are normal. VASCULATURE: Unremarkable. No abdominal aortic aneurysm. LYMPH NODES: Unremarkable. No enlarged lymph nodes. IMPRESSION: No acute findings on this contrasted CT of the abdomen and pelvis to explain the patient 's symptoms. Electronically signed by: Jazmine Herring MD 05/10/2019 5:47 AM DEVICE SALES CONSULTANT Due to temporary technical issues with the PACS/Fluency reporting system, reports are being signed by the in house radiologist as a courtesy to ensure prompt reporting. The interpreting radiologist is f ully responsible for the content of the report.
[2019-05-10 19:16] VITALS: TEMP 97.8
[2019-05-10 19:23] VITALS: BP 112/64; O2SAT 98
== END 2019-05-10 06:09 | disposition home or self-care (01) ==
LOC: ER 03:09
DX: K29.70 Gastritis, unspecified, without bleeding (principal); I10 Essential (primary) hypertension
CPT/HCPCS: 85025; 80048; 36415; 80076; 83690; 74177; 96375; 96374; 99284; Q9967; J2405